=== PATIENT | male | born 1965 | race Caucasian/White ===

== ENCOUNTER 2021-11-12 05:45 | Day surgery (SDC) | payer BC ==
[~2021-11-12] VITALS: Ht 188 cm; Wt 81.8 kg
[~2021-11-12 05:45] MED LIST: CONCERTA54 MG PO; IRBESARTAN150 MG PO; PRILOSEC OTC20 MG PO
[2021-11-12] MEDS ORDERED: HYDROCODON-ACE1 EA10 PO (07:47)
[2021-11-12] MEDS ORDERED: DICLOFENAC SODI75 MG PO (07:47)
--- NOTE | 2021-11-13 09:14 | OR ---
[facility] [address], [place] [address] Signed DATE OF OPERATION: 11/12/2021 SURGEON: Hussein Palacio MD PREOPERATIVE DIAGNOSIS: Possible SLAP tear, partial rotator cuff tear, left shoulder. POSTOPERATIVE DIAGNOSIS: Bursitis, left shoulder. PROCEDURE PERFORMED: Left shoulder arthroscopy with subacromial decompression. CHIEF CONTROLLER STATION: None. ANESTHESIA: General. BLOOD LOSS: Minimal. BRIEF HISTORY: Woodrow is a 56-year-old gentleman with pain in his shoulder. An MRI was consistent with the above findings. Risks and benefits of operative treatment were discussed with him after he failed nonoperative treatment. DESCRIPTION OF PROCEDURE: Once consent was obtained, he was taken to the operating room after adequate anesthesia was placed in a beach chair position. All downside pressure points were well padded. The left shoulder was prepped and draped in the standard sterile fashion. The shoulder was injected with 15 mL of 0.25% Marcaine with epinephrine. Subacromial space similarly injected. A standard posterior portal was made and the scope was introduced in the shoulder. The shoulder showed only minimal synovitis throughout. The subscapularis and rotator cuff were completely intact. The glenohumeral surfaces were intact. Biceps anchor were intact. The probe was used to follow the labrum from the bottom all the way up underneath the biceps. There was no instability or small unstable tears. Subacromial space showed moderate bursitis throughout. The superior surface of the rotator cuff was completely intact. The acromion was type 1. Electronically Signed By: HUSSEIN PALACIO MD 11/13/21 0914 PATIENT NAME: WOODROW MAJOR OPERATIVE REPORT DATE OF : 69 REPORT #: [id number] PHYSICIAN: HUSSEIN PALACIO MD PCP: KRISTIN FLOYD MD REPORT IS CONFIDENTIAL AND NOT TO BE RELEASED WITHOUT AUTHORIZATION [facility] [address] [place] [id number] Signed DESCRIPTION OF OPERATION: Diagnostic arthroscopy was undertaken as noted above. The scope was placed in subacromial space. A standard lateral portal was made and the bursa was removed using a combination of the shaver and Mitek VAPR. All bleeders were cauterized as we went. Again, the superior surface and undersurface of the rotator cuff were completely intact. The scope was then withdrawn. Portals were closed with 3-0 nylon and the wounds were dressed with Allevyn dressing and OpSites. He was awakened, taken to the recovery room in satisfactory condition. All sponge, needle, and instrument counts were correct. Hussein Palacio MD BA/MOREL /[id number] Copies: ~ Electronically Signed By: HUSSEIN PALACIO MD 11/13/21 0914 PATIENT NAME: WOODROW MAJOR OPERATIVE REPORT DATE OF : 69 REPORT #: [id number] PHYSICIAN: HUSSEIN PALACIO MD PCP: KRISTIN FLOYD MD REPORT IS CONFIDENTIAL AND NOT TO BE RELEASED WITHOUT AUTHORIZATION
== END 2021-11-12 09:45 | disposition home or self-care (01) ==
LOC: DS 05:45
PROVIDERS: ATTEND Specialist
PROC: 0RNK4ZZ Release Left Shoulder Joint, Percutaneous Endoscopic Approach (ICD-10-PCS; principal; 2021-11-12 06:45)
DX: M75.52 Bursitis of left shoulder (principal); M65.812 Other synovitis and tenosynovitis, left shoulder
CPT/HCPCS: 64415; J0330; J0690; J0735; J1100; J1885; J2001; J2250; J2405; J2704; J2765; J3010; J7121